=== PATIENT | female | born 1965 | race Caucasian/White ===

== ENCOUNTER 2017-01-30 13:15 | Outpatient (RCR) ==
[2015-07-28 07:37] VITALS: BMI 31.9
--- NOTE | 2017-02-01 13:12 | RS.OPPTEV2 ---
Date of Note: 01/30/17 Visit #: 1 Date of Evaluation: 01/30/17 Payer Source: Insurance Date of Onset/Injury/Change in Status: 11/04/16 Surgery Performed?: No Treatment Diagnosis: Right foot/ankle pain History of Condition/Mechanism of Injury:: Patient reports a knot on the side of her heel for a good while, but she did not start having pain until this past November. Prior Level of Function.....Patient was independent with: ADL's, Self Care, Work /Vocation, Caregiving, Ambulation/Mobility, Community Integration/Access Functional Limitations: Sleep, Self Care, ADL's, Reaching, Pushing, Pulling, Lifting, Carrying, Community Access/Integration Current Subjective/complaints:: Patient reports she has been in a CAM boot for a month. States she only wears it at work because she is on her feet constantly. Reports having pain on the right foot only. States prior to the boot she was having more pain. Now she only has pain when she is on her feet. She reports most of her pain is on the lateral side of the calcaneus. Reports no pain on the bottom of the heel. States pain begins in the morning after walking around. She has inserts in her shoes and has tried a frozen water bottle on the bottom of the foot. Treatment Side (optional): Right Medical History Medical History: Unremarkable Surgical History Comments:: Left knee surgery, bilateral foot surgery Smoking Status: Never smoker Hx Home Medications: protonix, has pain medication Patient's Goals: Her goal is to get relief of foot pain and avoid surgery. Pain Assessment - Pain Description Pain Location: right heel (lateral side) Current Pain Intensity: 5/10 Worst Pain Intensity: 8/10 Functional Outcome Measure LE Functional Scale: 45 (45/80=43.75% impairment) - G Codes & Severity Modifier G Codes & Modifier: NA Source of G Code score: NA Observation - Observation Inspection: Right heel exhibits an observable knot/protuberance on the calcaneus , just medial to the insertion of the achilles tendon. Girth Measurement Lower: Right foot: Malleoli 29 cm. Metheads 24.5 cm Gait - Gait Pattern Gait Comments: Patient ambulates without an assistive device with the CAM boot on the right LE. Without the boot, she demonstrates decreased heel strike or toe off and presents decreased stance on the right LE. Ankle ROM: Bilaterally WFL's Ankle Muscle Strength: Left WFL's - Right Ankle ROM Comments: Right DF 5 degrees, PF 60 degrees, Inversion and Eversion WFL's. - Left Ankle Strength Left Dorsiflexion: 5 Normal Left Plantar flexion: 5 Normal Left Eversion: 5 Normal Left Inversion: 5 Normal - Right Ankle Strength Right Dorsiflexion: 5 Normal Right Plantarflexion: 5 Normal Right Eversion: 4 Good Right Inversion: 4 Good Palpation Comments:: Patient reports slight tenderness on medial and lateral side of achilles tendon. No pain with direct palpation to throughout the achilles tendon. Sensation - Sensation Comments: Patient reports numbness at the medial side of the calcaneus. - Treatment Modality: Ultrasound Parameters/Method Applied: 1.5 w/cm2 continous over the medial and lateral aspect of the achilles tendon X 10 mins total. Patient Position: Prone Interventions - Exercise/Activities/Manual Therapy Exercises/Activities: Patient instructed in gastroc, soleus, and plantar fascia stretch for home. Advised to continue to wear the CAM boot at work, at least 1/ 2 of the day. Manual Therapy: Na HOME EXERCISE PROGRAM: Gastroc, soleus, plantar fascia stretching - Charges Total Direct Minutes: 45 mins Total Treatment Time: 45 mins Procedures billed for this date of service:: ELVIN Dixon, Assessment Assessment: Patient presents to therapy with a diagnosis of Retrocalcaneal bursitis and achilles tendinitis of the right LE. She reports pain with weightbearing. Demonstrates limited heelcord flexibility and weakness in inversion and eversion. She will benefit from modalities to reduce soft tissue inflammation, exercises to improve heelcord tissue length and progressed ankle stability exercises. Patient Education: Education of diagnosis, Body/Joint mechanics, Home Exercise Program, Home Safety, Activity Modification, Education of Plan of Care Rehab Potential: Good Short Term Goals Goal #1: Right ankle DF to 10 degrees actively. Goal to be met by: 02/14/17 Goal #2: Right ankle inversion and eversion 4+/5. Goal to be met by: 02/14/17 Goal #3: Patient independent and compliant with basic HEP. Goal to be met by: 02/14/17 Goal #4: Patient to ambulate short distances w/o CAM boot, w/ minimal R foot pain. Goal to be met by: 02/14/17 [facility] Goals Goal #1: Pt knows HEP and understands the need to cont. exercises after D/C from PT Goal to be met by: 03/22/17 Goal #2: Pt to tolerate standing/walking as needed @ work and home w/o R foot pain. Goal to be met by: 03/22/17 Goal #3: Score on LE functional scale improved to 70/80. Goal to be met by: 03/22/17 Goal #4: Pt to amb. without CAM boot functional distances without gait deviation. Goal to be met by: 03/22/17 Plan - Treatment to be Provided Procedures: Therapeutic Exercises, Therapeutic Activity, Neuromuscular Rehab, Manual Therapy, Patient Education Modalities: Electrical Stimulation, Ultrasound/Phonophoresis, Class IV Laser, Cryotherapy, Hot Packs - Treatment Plan Frequency: 2-3 X week Duration: 6 weeks ORDER # VISITS AND/OR THROUGH DATE: 03/22/17 - Treatment Code (1) Foot pain Qualifiers: Laterality: right Qualified Description: Right foot pain Qualifier Code(s): (M79.671) Pain in right foot (2) Ankle stiff Qualifiers: Laterality: right Qualified Description: Stiffness of ankle joint, right Qualifier Code(s): (M25.671) Stiffness of right ankle, not elsewhere classified (3) Calcaneal bursitis, right Comments: 77.51 (4) Achilles tendinitis of right lower extremity Comments: M76.61
== END 2017-02-01 ==
PROVIDERS: ATTEND Podiatrist
DX: M75.22 Bicipital tendinitis, left shoulder (principal)

== ENCOUNTER 2017-02-22 08:15 | Outpatient (RCR) ==
[2015-07-28 07:37] VITALS: BMI 31.9
--- NOTE | 2017-02-04 10:01 | RS.OPPTDN ---
Subjective Date of Note: 02/04/17 Visit #: 2 Date of Evaluation: 01/30/17 Payer Source: Insurance Treatment Diagnosis: Right foot/ankle pain Current Subjective/complaints:: Patient reports moderate pain,walked alot over the weekend. Pain Assessment - Pain Description Pain Location: right heel (lateral side) Current Pain Intensity: 5/10 - Treatment Modality: Ultrasound Parameters/Method Applied: 10 mins. @ 1.5 w/cm2 ,continuous mode to R ankle, lateral aspect of heel. Interventions - Exercise/Activities/Manual Therapy Exercises/Activities: R ankle isometrics all directions,gentle stretches for DF/ PF.HEP review. Total minutes of Exercise: 15 Manual Therapy: Na Total minutes of Manual Therapy: 0 HOME EXERCISE PROGRAM: Gastroc, soleus, plantar fascia stretching - Charges Total Direct Minutes: 25 Total Treatment Time: 25 Procedures billed for this date of service:: US,ex 1 Assessment: Patient tolerates isometrics with out increased pain.She reports most of her pain today is with stretching the Achilles tendon.We discussed her wearing the CAM boot as recommended by the supervising PT,and to exercises in PAIN FREE ROM. Patient Education: Education of diagnosis, Body/Joint mechanics, Home Exercise Program, Home Safety, Activity Modification, Education of Plan of Care Patient demonstrates compliance with HEP?: Yes Short Term Goals Goal #1: Right ankle DF to 10 degrees actively. Goal to be met by: 02/14/17 Progress towards Goal:: Progressing Goal #2: Right ankle inversion and eversion 4+/5. Goal to be met by: 02/14/17 Goal #3: Patient independent and compliant with basic HEP. Goal to be met by: 02/14/17 Goal #4: Patient to ambulate short distances w/o CAM boot, w/ minimal R foot pain. Goal to be met by: 02/14/17 Custodial Goals Goal #1: Pt knows HEP and understands the need to cont. exercises after D/C from PT Goal to be met by: 03/22/17 Goal #2: Pt to tolerate standing/walking as needed @ work and home w/o R foot pain. Goal to be met by: 03/22/17 Goal #3: Score on LE functional scale improved to 70/80. Goal to be met by: 03/22/17 Goal #4: Pt to amb. without CAM boot functional distances without gait deviation. Goal to be met by: 03/22/17 Plan PLAN OF CARE EXPIRES ON:: 03/22/17 ORDER # VISITS AND/OR THROUGH DATE: 03/22/17 PLAN: Continue Plan of Care
--- NOTE | 2017-02-06 11:31 | RS.OPPTDN ---
Subjective Date of Note: 02/06/17 Visit #: 3 Date of Evaluation: 01/30/17 Payer Source: Insurance Treatment Diagnosis: Right foot/ankle pain Current Subjective/complaints:: Patient reports treatment is helping to reduce pain in the right heel. States she is consisitently wearing her boot. Pain Assessment - Pain Description Pain Location: right heel (lateral side) Current Pain Intensity: 5/10 - Treatment Modality: Ultrasound Parameters/Method Applied: [id number] at 1.5w/cm2 to the right heel and distal achilles tendon prior to EX. Patient Position: Prone Interventions - Exercise/Activities/Manual Therapy Exercises/Activities: Manual stretching to the R heel cords and plantar fascia. Isometric ankle df. Total minutes of Exercise: 12mins Manual Therapy: Na HOME EXERCISE PROGRAM: Gastroc, soleus, plantar fascia stretching - Charges Total Direct Minutes: 24mins Total Treatment Time: 25mins Procedures billed for this date of service:: US, EX Assessment: Patient responding well to treatment. Patient Education: Home Exercise Program Patient demonstrates compliance with HEP?: Yes Short Term Goals Goal #1: Right ankle DF to 10 degrees actively. Goal to be met by: 02/14/17 Progress towards Goal:: Progressing Goal #2: Right ankle inversion and eversion 4+/5. Goal to be met by: 02/14/17 Goal #3: Patient independent and compliant with basic HEP. Goal to be met by: 02/14/17 Goal #4: Patient to ambulate short distances w/o CAM boot, w/ minimal R foot pain. Goal to be met by: 02/14/17 [facility] Goals Goal #1: Pt knows HEP and understands the need to cont. exercises after D/C from PT Goal to be met by: 03/22/17 Goal #2: Pt to tolerate standing/walking as needed @ work and home w/o R foot pain. Goal to be met by: 03/22/17 Goal #3: Score on LE functional scale improved to 70/80. Goal to be met by: 03/22/17 Goal #4: Pt to amb. without CAM boot functional distances without gait deviation. Goal to be met by: 03/22/17 Plan PLAN OF CARE EXPIRES ON:: 03/22/17 ORDER # VISITS AND/OR THROUGH DATE: 03/22/17 PLAN: Continue Plan of Care
--- NOTE | 2017-02-08 11:24 | RS.OPPTDN ---
Subjective Date of Note: 02/08/17 Visit #: 4 Date of Evaluation: 01/30/17 Payer Source: Insurance Treatment Diagnosis: Right foot/ankle pain Current Subjective/complaints:: Patient reports treatment is helping reduce pain. States she went without boot more last evening and pain has slightly increased. States she is working on stretching and icing. Pain Assessment - Pain Description Pain Location: right heel (lateral side) Current Pain Intensity: 5/10 - Treatment Modality: Ultrasound Parameters/Method Applied: [id number] at 1.5w/cm2 to the right heel and along the distal heel cord. Patient Position: Prone Interventions - Exercise/Activities/Manual Therapy Exercises/Activities: Manual stretching to the R heel cords and plantar fascia, in prone, supine, and standing position. Isometric ankle df. All multiple reps. Total minutes of Exercise: 15mins Manual Therapy: Na HOME EXERCISE PROGRAM: Gastroc, soleus, plantar fascia stretching. Isometric ankle df. - Charges Total Direct Minutes: 27mins Total Treatment Time: 30mins Procedures billed for this date of service:: US, EX Assessment: Patient continues to see progress with treatment and stretching exercise. Patient Education: Home Exercise Program, Home Safety Patient demonstrates compliance with HEP?: Yes Short Term Goals Goal #1: Right ankle DF to 10 degrees actively. Goal to be met by: 02/14/17 Progress towards Goal:: Progressing Goal #2: Right ankle inversion and eversion 4+/5. Goal to be met by: 02/14/17 Goal #3: Patient independent and compliant with basic HEP. Goal to be met by: 02/14/17 Progress towards Goal:: Progressing Goal #4: Patient to ambulate short distances w/o CAM boot, w/ minimal R foot pain. 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 exercises after D/C from PT Goal to be met by: 03/22/17 Goal #2: Pt to tolerate standing/walking as needed @ work and home w/o R foot pain. Goal to be met by: 03/22/17 Goal #3: Score on LE functional scale improved to 70/80. Goal to be met by: 03/22/17 Goal #4: Pt to amb. without CAM boot functional distances without gait deviation. Goal to be met by: 03/22/17 Plan PLAN OF CARE EXPIRES ON:: 03/22/17 ORDER # VISITS AND/OR THROUGH DATE: 03/22/17 PLAN: Continue Plan of Care
--- NOTE | 2017-02-11 09:19 | RS.OPPTDN ---
Subjective Date of Note: 02/11/17 Visit #: 15 Date of Evaluation: 01/30/17 Payer Source: Insurance Treatment Diagnosis: Right foot/ankle pain Current Subjective/complaints:: Patient reports right heel pain is better. She is trying to decrease use of boot during the day at home. Pain Assessment - Pain Description Pain Location: right heel (lateral side) Current Pain Intensity: Low as she is wearing boot this morning. Worst Pain Intensity: 4/10 after walking without boot. - Treatment Modality: Ultrasound Parameters/Method Applied: [id number] at 1.5w/cm2 to the right posterior heel and distal achilles tendon. Patient Position: Prone Interventions - Exercise/Activities/Manual Therapy Exercises/Activities: Manual stretching to the R heel cords and plantar fascia, in prone, supine, and standing position. Isometric ankle df. All multiple reps. Total minutes of Exercise: 12mins Manual Therapy: Na HOME EXERCISE PROGRAM: Gastroc, soleus, plantar fascia stretching. Isometric ankle df. - Charges Total Direct Minutes: 26mins Total Treatment Time: 26mins Procedures billed for this date of service:: US, EX Assessment: Patient progressing well. She reports reduction in pain level and is reducing time she wears boot. Patient Education: Home Exercise Program Comments: Discussed wearing boot half days at work in attempt to wean but avoid increase pain. Patient demonstrates compliance with HEP?: Yes Short Term Goals Goal #1: Right ankle DF to 10 degrees actively. Goal to be met by: 02/14/17 Progress towards Goal:: Progressing Goal #2: Right ankle inversion and eversion 4+/5. Goal to be met by: 02/14/17 Progress towards Goal:: Progressing Goal #3: Patient independent and compliant with basic HEP. Goal to be met by: 02/14/17 Progress towards Goal:: Met Goal #4: Patient to ambulate short distances w/o CAM boot, w/ minimal R foot pain. Goal to be met by: 02/14/17 Progress towards Goal:: Progressing Long-Term Goals Goal #1: Pt knows HEP and understands the need to cont. exercises after D/C from PT Goal to be met by: 03/22/17 Progress towards goal: Progressing Goal #2: Pt to tolerate standing/walking as needed @ work and home w/o R foot pain. Goal to be met by: 03/22/17 Goal #3: Score on LE functional scale improved to 70/80. Goal to be met by: 03/22/17 Goal #4: Pt to amb. without CAM boot functional distances without gait deviation. Goal to be met by: 03/22/17 Plan PLAN OF CARE EXPIRES ON:: 03/22/17 ORDER # VISITS AND/OR THROUGH DATE: 03/22/17 PLAN: Continue Plan of Care
--- NOTE | 2017-02-13 09:20 | RS.OPPTDN ---
Subjective Date of Note: 02/13/17 Visit #: 6 Date of Evaluation: 01/30/17 Payer Source: Insurance Treatment Diagnosis: Right foot/ankle pain Current Subjective/complaints:: Patient states she was able to go without brace all day yesterday at work. States she will try to go all day today, but has boot in case she has increased pain. Pain Assessment - Pain Description Pain Location: right heel (lateral side) Current Pain Intensity: Low as she is wearing boot this morning. - Treatment Modality: Ultrasound Parameters/Method Applied: [id number] at 1.5w/cm2 to the right posterior heel and along the heel cords. Patient Position: Prone Interventions - Exercise/Activities/Manual Therapy Exercises/Activities: Manual stretching to the R heel cords and plantar fascia, in prone, supine, and standing position. Isometric ankle df, inversion, and eversion, all multiple reps. Total minutes of Exercise: 15mins Manual Therapy: Na HOME EXERCISE PROGRAM: Gastroc, soleus, plantar fascia stretching. Isometric ankle df. - Charges Total Direct Minutes: 29mins Total Treatment Time: 29mins Procedures billed for this date of service:: US, EX Assessment: Patient going with brace and responding well. Patient Education: Home Exercise Program Patient demonstrates compliance with HEP?: Yes Short Term Goals Goal #1: Right ankle DF to 10 degrees actively. Goal to be met by: 02/14/17 Progress towards Goal:: Progressing Goal #2: Right ankle inversion and eversion 4+/5. Goal to be met by: 02/14/17 Progress towards Goal:: Met Goal #3: Patient independent and compliant with basic HEP. Goal to be met by: 02/14/17 Progress towards Goal:: Met Goal #4: Patient to ambulate short distances w/o CAM boot, w/ minimal R foot pain. Goal to be met by: 02/14/17 Progress towards Goal:: Met Tearer Goals Goal #1: Pt knows HEP and understands the need to cont. exercises after D/C from PT Goal to be met by: 03/22/17 Progress towards goal: Progressing Goal #2: Pt to tolerate standing/walking as needed @ work and home w/o R foot pain. Goal to be met by: 03/22/17 Progress towards goal: Progressing Goal #3: Score on LE functional scale improved to 70/80. Goal to be met by: 03/22/17 Goal #4: Pt to amb. without CAM boot functional distances without gait deviation. Goal to be met by: 03/22/17 Progress towards goal: Progressing Plan PLAN OF CARE EXPIRES ON:: 03/22/17 ORDER # VISITS AND/OR THROUGH DATE: 03/22/17 PLAN: Continue Plan of Care
--- NOTE | 2017-02-18 09:26 | RS.OPPTDN ---
Subjective Date of Note: 02/18/17 Visit #: 7 Date of Evaluation: 01/30/17 Payer Source: Insurance Treatment Diagnosis: Right foot/ankle pain Current Subjective/complaints:: Patient reports increased right heel pain today. States she was on her feet a lot over the weekend. She is wearing the boot again today at work. Reports lateral heel (calcaneus) is more painful than medial today. Pain Assessment - Pain Description Pain Location: right heel (lateral side) Current Pain Intensity: moderate+ - Treatment Modality: Ultrasound Parameters/Method Applied: [id number] at 1.5w/cm2 to the medial and lateral calcaneus and along the achilles tendon prior to EX and ice massage. Patient Position: Prone - Heat/Cryotherapy Treatment: Cryotherapy (x5mins ice massage to the right heel and achilles tendon. Patient in prone. ) Interventions - Exercise/Activities/Manual Therapy Exercises/Activities: x5mins. Manual stretching to the R heel cords and plantar fascia, in prone. Total minutes of Exercise: 5mins Manual Therapy: Na HOME EXERCISE PROGRAM: Gastroc, soleus, plantar fascia stretching. Isometric ankle df. - Charges Total Direct Minutes: 24mins Total Treatment Time: 28mins Procedures billed for this date of service:: US, EX Assessment: Patient with flair-up today. She did a lot of standing over weekend and did not wear boot which may have aggravated pain. Patient Education: Home Exercise Program, Activity Modification Comments: Reviewed mechancis, HEP, and advised patient to change to a better supportive shoe when walking at home. Instructed patient in ice massage for home care. Patient demonstrates compliance with HEP?: Yes Short Term Goals Goal #1: Right ankle DF to 10 degrees actively. Goal to be met by: 02/14/17 Progress towards Goal:: Progressing Goal #2: Right ankle inversion and eversion 4+/5. Goal to be met by: 02/14/17 Progress towards Goal:: Met Goal #3: Patient independent and compliant with basic HEP. Goal to be met by: 02/14/17 Progress towards Goal:: Met Goal #4: Patient to ambulate short distances w/o CAM boot, w/ minimal R foot pain. Goal to be met by: 02/14/17 Progress towards Goal:: Met Snf Goals Goal #1: Pt knows HEP and understands the need to cont. exercises after D/C from PT Goal to be met by: 03/22/17 Progress towards goal: Progressing Goal #2: Pt to tolerate standing/walking as needed @ work and home w/o R foot pain. Goal to be met by: 03/22/17 Progress towards goal: Regressing Comments: flair-up with pain today Goal #3: Score on LE functional scale improved to 70/80. Goal to be met by: 03/22/17 Goal #4: Pt to amb. without CAM boot functional distances without gait deviation. Goal to be met by: 03/22/17 Progress towards goal: Regressing Comments: wearing boot at work again today Plan PLAN OF CARE EXPIRES ON:: 03/22/17 ORDER # VISITS AND/OR THROUGH DATE: 03/22/17 PLAN: Continue Plan of Care (Continue mdoalites and patient will try ice massage at home to reduce pain and swelling.)
--- NOTE | 2017-02-20 10:00 | RS.OPPTDN ---
Subjective Date of Note: 02/20/17 Visit #: 8 Date of Evaluation: 01/30/17 Payer Source: Insurance Treatment Diagnosis: Right foot/ankle pain Current Subjective/complaints:: Patient reports she has worn boot at work the last 3 days and pain and tenderness has decreased. Pain Assessment - Pain Description Pain Location: right heel (lateral side) Current Pain Intensity: mild to mod Other Comments regarding Pain:: Continues to have pain at the medial and lateral calcaneus at point of achilles insertion. - Treatment Modality: Ultrasound Parameters/Method Applied: [id number] at 1.5w/cm2 to the right heel at tendon insertion and along the achilles tendon and mid gastroc. Patient Position: Prone - Heat/Cryotherapy Treatment: Cryotherapy (x5mins ice massage to right heel and achilles tendon following EX. Patient in prone. ) Interventions - Exercise/Activities/Manual Therapy Exercises/Activities: [id number]. Manual stretching to the R heel cords and plantar fascia, in prone and supine. Isometrics for right ankle df, inversion, and eversion, multiple reps. Total minutes of Exercise: 10mins Manual Therapy: Na HOME EXERCISE PROGRAM: Gastroc, soleus, plantar fascia stretching. Isometric ankle df. Red ther green theraband for ankle df. - Charges Total Direct Minutes: 29mins Total Treatment Time: 30mins Procedures billed for this date of service:: US, EX Assessment: Patient responds better to treatment since returning to wearing boot at work. Patient Education: Home Exercise Program Patient demonstrates compliance with HEP?: Yes Short Term Goals Goal #1: Right ankle DF to 10 degrees actively. Goal to be met by: 02/14/17 Progress towards Goal:: Progressing Goal #2: Right ankle inversion and eversion 4+/5. Goal to be met by: 02/14/17 Progress towards Goal:: Met Goal #3: Patient independent and compliant with basic HEP. Goal to be met by: 02/14/17 Progress towards Goal:: Met Goal #4: Patient to ambulate short distances w/o CAM boot, w/ minimal R foot pain. 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 exercises after D/C from PT Goal to be met by: 03/22/17 Progress towards goal: Progressing Goal #2: Pt to tolerate standing/walking as needed @ work and home w/o R foot pain. Goal to be met by: 03/22/17 Progress towards goal: Regressing Goal #3: Score on LE functional scale improved to 70/80. Goal to be met by: 03/22/17 Goal #4: Pt to amb. without CAM boot functional distances without gait deviation. Goal to be met by: 03/22/17 Progress towards goal: Regressing Plan PLAN OF CARE EXPIRES ON:: 03/22/17 ORDER # VISITS AND/OR THROUGH DATE: 03/22/17 PLAN: Continue Plan of Care
--- NOTE | 2017-02-22 10:25 | RS.OPPTDN ---
Subjective Date of Note: 02/22/17 Visit #: 9 Date of Evaluation: 01/30/17 Payer Source: Insurance Treatment Diagnosis: Right foot/ankle pain Current Subjective/complaints:: Patient reports continued pain in the right heel and along distal achilles tendon. States she has been consistently wearing the walking boot this week. Following discussion, patient decides to hold treatment pending follow-up with physician. If surgery is recommended, she will save additonal therapy visit for post-op care. Pain Assessment - Pain Description Pain Location: right heel (lateral side) Current Pain Intensity: mild to mod - Treatment Modality: Ultrasound Parameters/Method Applied: [id number] at 1.5w/cm2 to the posterior heel and along the distal achilles tendon and mid gastroc. Patient Position: Prone - Heat/Cryotherapy Treatment: Cryotherapy (CP to right heel and distal achilles tendon following stretching. ) Interventions - Exercise/Activities/Manual Therapy Exercises/Activities: x8mins. Manual stretching to the R heel cords and plantar fascia, in prone and supine. Isometrics for right ankle df, multiple reps. Total minutes of Exercise: 8mins Manual Therapy: Na HOME EXERCISE PROGRAM: Gastroc, soleus, plantar fascia stretching. Isometric ankle df. Red ther green theraband for ankle df. - Charges Total Direct Minutes: 22mins Total Treatment Time: 37mins Procedures billed for this date of service:: US, EX Assessment: Patient with recurring exacerbation of right heel pain. She will hold therapy and see physician for follw-up. She will need to continue basic HEP and use ice to reduce swelling and inflammation. Patient Education: Home Exercise Program, Home Safety, Activity Modification Patient demonstrates compliance with HEP?: Yes Short Term Goals Goal #1: Right ankle DF to 10 degrees actively. Goal to be met by: 02/14/17 Progress towards Goal:: Progressing Goal #2: Right ankle inversion and eversion 4+/5. Goal to be met by: 02/14/17 Progress towards Goal:: Met Goal #3: Patient independent and compliant with basic HEP. Goal to be met by: 02/14/17 Progress towards Goal:: Met Goal #4: Patient to ambulate short distances w/o CAM boot, w/ minimal R foot pain. Goal to be met by: 02/14/17 Progress towards Goal:: Met [facility] Goals Goal #1: Pt knows HEP and understands the need to cont. exercises after D/C from PT Goal to be met by: 03/22/17 Progress towards goal: Progressing Goal #2: Pt to tolerate standing/walking as needed @ work and home w/o R foot pain. Goal to be met by: 03/22/17 Progress towards goal: Progressing Goal #3: Score on LE functional scale improved to 70/80. Goal to be met by: 03/22/17 Goal #4: Pt to amb. without CAM boot functional distances without gait deviation. Goal to be met by: 03/22/17 Progress towards goal: No Change Plan PLAN OF CARE EXPIRES ON:: 03/22/17 ORDER # VISITS AND/OR THROUGH DATE: 03/22/17 PLAN: Hold (Hold treatment at this time and patient to follow-up with physician.)
--- NOTE | 2017-04-18 15:10 | RS.QUICKDC ---
Discharge from PT Date of Discharge: 04/18/17 Number of Visits: 9 Reason for Discharge: Patient made some progress and was able to met 3 goals. She did report continued heel pain and was scheduled for a follow-up with her phsyician. No further treatment ordered or appointments were scheduled. She will be schedule for surgery. Please refer to last daily note for specifics of treatment. Discharge at this time.
== END 2017-03-03 ==
PROVIDERS: ATTEND Podiatrist
DX: M75.22 Bicipital tendinitis, left shoulder (principal)

== ENCOUNTER 2017-03-15 07:37 | Emergency (ER) | payer OTHER ==
[2017-03-15 07:46] VITALS: BP 126/83; TEMP 97.7; BMI 33.9
--- NOTE | 2017-03-15 08:02 | ED.PDOC ---
General ED Provider: Dr. VIC SMALL Chief Complaint: Foot Pain/Injury Stated Complaint: right foot pain Time Seen by Physician: 07:40 Mode of Arrival: Walk-In Information Source: Patient Exam Limitations: No limitations Primary Care Provider: ERNESTO SERVIN Nursing and Triage Documentation Reviewed and Agree: Yes Musculoskeletal Complaint Exam - Ankle/Foot Complaint/Exam Location of Injury: Reports: Right, Foot Onset/Duration: weeks Symptoms Are: Reports: Still present Onset of Pain: Reports: Weeks Initial Severity: Moderate Current Severity: Moderate Character: Reports: Aching, Throbbing, Spasmodic, Stiffness Alleviating: Reports: Rest, Position Aggravating: Reports: Movement, Weight bearing, Prolonged standing Able to Bear Weight: Yes Associated Signs and Symptoms: Denies: Swelling, Redness, Bruising, Fever, Weakness, Numbness, Tingling Gout Risk Factors: Reports: >40 years old Review of Systems - Review Of Systems Constitutional: Reports: No symptoms Eyes: Reports: No symptoms Ears, Nose, Mouth, Throat: Reports: No symptoms Respiratory: Reports: No symptoms Cardiac: Reports: No symptoms GI: Reports: No symptoms : Reports: No symptoms Musculoskeletal: Reports: Joint pain (fppt ) Skin: Reports: No symptoms Neurological: Reports: No symptoms Endocrine: Reports: No symptoms Hematologic/Lymphatic: Reports: No symptoms All Other Systems: Reviewed and Negative Past Medical History - Past Medical History Previously Healthy: Yes Endocrine: Reports: None Cardiovascular: Reports: None Respiratory: Reports: None Hematological: Reports: None Gastrointestinal: Reports: None Genitourinary: Reports: None Neuro/Psych: Reports: None Musculoskeletal: Reports: None Cancer: Reports: None Last Menstrual Period: 09/19 - Surgical History General Surgical History: Reports: Cholecystectomy, Orthopedic - Family History Family History: Reports: Unknown - Social History Smoking Status: Never smoker Hx Substance Use: No Alcohol Screening: Occasionally Physical Exam - Physical Exam Appearance: Well-appearing, No pain distress, Well-nourished Eyes: GABRIELA, EOMI, Conjunctiva clear ENT: Ears normal, Nose normal, Oropharynx normal Respiratory: Airway patent, Breath sounds clear, Breath sounds equal, Respirations nonlabored Cardiovascular: RRR, Pulses normal, No rub, No murmur GI/: Soft, Nontender, No masses, Bowel sounds normal, No Organomegaly Musculoskeletal: Limited ROM (right foot consistent with heel spur) Skin: Warm, Dry, Normal color Neurological: Sensation intact, Motor intact, Reflexes intact, Cranial nerves intact, Alert, Oriented Psychiatric: Affect appropriate, Mood appropriate Critical Care Note - Critical Care Note Total Time (mins): 0 Course - Course Vital Signs: Temp Pulse Resp BP Pulse Ox 03/15/17 07:39 97.7 F 87 20 126/83 94 L Departure - Departure Time of Disposition: 08:01 Disposition: HOME SELF-CARE Discharge Problem: Foot pain, right Instructions: Arthralgia (ED) Condition: Good Pt referred to PMD for follow-up: Yes Allergies/Adverse Reactions: Allergies meperidine HCl [From Demerol] Allergy (Severe, Unverified 01/27/16 13:34) N/V Home Medications: Ambulatory Orders Pantoprazole Sodium [Protonix] 40 mg PO DAILY 07/28/15
== END 2017-03-15 08:11 | disposition home or self-care (01) ==
LOC: ED 07:37
DX: M79.671 Pain in right foot (principal)
CPT/HCPCS: 99282

== ENCOUNTER 2017-06-17 14:39 | Outpatient (CLI) ==
[2017-06-17 14:52] LABS: BASOPHILS # (AUTO) 0.1 K/uL (0-0.2); BASOPHILS % (AUTO) 1.1 % (0.0-3.0); EOSINOPHILS # (AUTO) 0.3 K/ul (0.0-0.7); HEMATOCRIT 40.9 % (37.0-47.0); HEMOGLOBIN 14.3 g/dl (12.0-16.0); IMMATURE GRANULOCYTE % (AUTO) 0.3 % (0.0-5.0); LYMPHOCYTES # (AUTO) 2.1 K/uL (0.60-3.4); MEAN CORPUSCULAR HEMOGLOBIN 31.6 pg (27.0-31.0); MEAN CORPUSCULAR VOLUME 90.5 fl (81.0-99.0); MONOCYTES # (AUTO) 0.4 K/uL (0.4-2.0); MONOCYTES % (AUTO) 6.5 (0-10); NEUTROPHILS # (AUTO) 3.3 K/ul (2.0-6.9); NEUTROPHILS % (AUTO) 54.1; PLATELET COUNT 209 10^3/uL (140-440); RED BLOOD COUNT 4.52 10^6/ul (4.20-5.40); WHITE BLOOD COUNT 6.18 K/ul (4.6-10.2)
[2017-06-17 15:37] LABS: ALBUMIN 3.8 g/dL (3.4-5.0); ALBUMIN/GLOBULIN RATIO 1.12; BILIRUBIN,TOTAL 0.44 mg/dL (0.00-1.20); BUN/CREATININE RATIO 21.51; CALCIUM 9.5 mg/dL (8.2-10.2); CHOL/HDL RATIO 3.7 (4.5-5.5); CREATININE 0.79 mg/dL (0.60-1.30); POTASSIUM 3.6 mmol/L (3.5-5.10); TOTAL PROTEIN 7.2 g/dL (6.4-8.2)
[2017-06-17 16:02] LABS: ANION GAP 13.6
== END 2017-06-17 14:40 | disposition home or self-care (01) ==
LOC: LAB 14:39
PROVIDERS: ATTEND Internal Medicine
DX: E55.9 Vitamin D deficiency, unspecified (principal); K21.9 Gastro-esophageal reflux disease without esophagitis
CPT/HCPCS: 36415; 80053; 80061; 83036; 84443; 85025

== ENCOUNTER 2017-10-02 08:15 | Outpatient (RCR) ==
--- NOTE | 2017-09-10 16:39 | RS.OPPTEV2 ---
Date of Note: 09/10/17 Visit #: 1 Date of Evaluation: 09/10/17 Payer Source: Insurance Date of Onset/Injury/Change in Status: 07/05/17 Surgery Performed?: Yes Procedure Performed: surgery to remove bone spur from achilles tendon area of R foot Treatment Diagnosis: Right foot/ankle pain History of Condition/Mechanism of Injury:: Patient reports a knot on the side of her heel for a good while, but she did not start having pain until this past November. Prior Level of Function.....Patient was independent with: ADL's, Self Care, Work /Vocation, Caregiving, Ambulation/Mobility, Community Integration/Access Functional Limitations: Sleep, Self Care, ADL's, Reaching, Pushing, Pulling, Lifting, Carrying, Community Access/Integration Current Subjective/complaints:: pt states she had surgery on 07/05/17 and MD told her she could gradually stop wearing boot. pt states last week she thinks she overdid it and worked on her feet all day without boot and R foot swelled. Treatment Side (optional): Right *Precautions: n/a Medical History Medical History: Unremarkable Medical History Comments:: GERD Surgical History: Cholecystectomy Surgical History Comments:: Left knee surgery, bilateral foot surgery, L shld rotator cuff repair, Smoking Status: Never smoker Hx Home Medications: protonix, has pain medication Patient's Goals: be able to return to activities with no restriction Pain Assessment - Pain Description Pain Location: right heel (lateral side) Current Pain Intensity: no pain at rest Functional Outcome Measure UE Functional Index: 45 - G Codes & Severity Modifier G Codes & Modifier: n/a Source of G Code score: n/a Observation - Observation Posture: Forward Head, Rounded Shoulders Handedness: Right Gait - Gait Pattern General Gait Pattern Observation: Crouched Gait, Short Stance Time (R), Decrease Stride Lngth (R) Gait Comments: pt amb with decreased heel strike, toe off gait, pt also amb with RLE ext rotated General Range of Motion: BUE WFL's, LLE WFL's. R LE WFL's except R ankle Muscle Strength: BUE 5/5, LLE 5/5,. RLE hip flex, knee flex/ext 5/5, except ankle DF/PF Ankle ROM: Left WFL's Ankle Muscle Strength: Left WFL's - Right Ankle ROM Right DF with Knee extension: 90 Right Plantarflexion: 40 Right Ankle/Foot ROM Limitations: Soft Tissue Tightness, Pain - Right Ankle Strength Right Dorsiflexion: 3 Fair Right Plantarflexion: 3 Fair Right Eversion: 3+ Fair+ Right Inversion: 3+ Fair+ Palpation Palpation Findings: Tenderness Comments:: R lat ankle Sensation - Sensation Right Upper Extremity: Intact/Normal Left Upper Extremity: Intact/Normal Right Lower Extremity: Intact/Normal Left Lower Extremity: Intact/Normal Sensation Description: Within Normal Limits Balance - Sitting Balance Static Sitting Balance: Normal Dynamic Sitting Balance: Normal - Standing Balance Static Standing Balance: Normal Dynamic Standing Balance: Normal - Heat/Cryotherapy Treatment: Cryotherapy Comments:: R ankle/foot Interventions - Exercise/Activities/Manual Therapy Exercises/Activities: pt performed RLE Ankle DF, PF, Inversion with green tband , rolling ball under foot to stretch plantar fascia, ankle alphabet as well as forward lunges x 5 reps, side lunges x 5 reps. Total minutes of Exercise: 15 Manual Therapy: Na HOME EXERCISE PROGRAM: pt given written HEP with ankle alphabet, tband ex: DF/PF , Inversion, rolling object on plantar surface of foot to stretch plantar fascia , as well as AP and instructed pt to do AP while sitting at her desk and to elevate LE. Also gave pt instructions to ice foot after work/exercise and forward and side lunges. - Charges Total Direct Minutes: 40 Total Treatment Time: 40 Procedures billed for this date of service:: shena hernandez Assessment Assessment: pt presents with edema R ankle as well as decreased strength, ROM and decreased gait sequencing Patient Education: Home Exercise Program, Home Safety, Activity Modification, Education of Plan of Care Rehab Potential: Good Short Term Goals Goal #1: R ankle ROM DF to 95, PF to 50 AROM Goal to be met by: 09/24/17 Goal #2: Increase R ankle Strength DF/PF 4-/5, Inversion/eversion 4-/5 Goal to be met by: 09/24/17 Goal #3: pt amb in dept with improved heel strike/toe off gait pattern w/o ER RLE Goal to be met by: 09/24/17 [facility] Goals Goal #1: pt with improved strength R ankle 4to 4+/5 and independent with HEP Goal to be met by: 10/08/17 Goal #2: pt with decreased edema after working in R ankle, with ROM equal to [place] Goal to be met by: 10/08/17 Goal #3: pt improved LE functional scale to 60/80 Goal to be met by: 10/08/17 Goal #4: Pt to amb functional distances without gait deviation. Goal to be met by: 10/08/17 Plan - Treatment to be Provided Procedures: Therapeutic Exercises, Therapeutic Activity, Neuromuscular Rehab, Manual Therapy, Patient Education Modalities: Electrical Stimulation, Ultrasound/Phonophoresis, Class IV Laser, Cryotherapy, Hot Packs - Treatment Plan Frequency: 2 X week Duration: 4 weeks ORDER # VISITS AND/OR THROUGH DATE: 10/08/17 - Treatment Code (1) Ankle pain Code(s): M25.579 - PAIN IN UNSPECIFIED ANKLE AND JOINTS OF UNSPECIFIED FOOT Qualifiers: Chronicity: acute Laterality: right Qualified Code(s): M25.571 - Pain in right ankle and joints of right foot (2) Encounter for other orthopedic aftercare Code(s): Z47.89 - ENCOUNTER FOR OTHER ORTHOPEDIC AFTERCARE
--- NOTE | 2017-09-12 09:44 | RS.OPPTDN ---
Subjective Date of Note: 09/12/17 Visit #: 2 Date of Evaluation: 01/30/17 Payer Source: Insurance Treatment Diagnosis: Right foot/ankle pain Current Subjective/complaints:: Patient reports marked improvement in swelling and tightness at the right foot/ankle following exercise and modalities. States she is working on improving gait pattern and push-off. *Precautions: n/a Pain Assessment - Pain Description Pain Location: right heel (lateral side) Current Pain Intensity: no pain at rest - Treatment Modality: Electrical Stim Unattended Parameters/Method Applied: [id number] HVGC to 105-115p.v. with 4 small pads to right ankle and mid gastroc with CP following EX. - Heat/Cryotherapy Treatment: Cryotherapy ([id number] with Estim ) Interventions - Exercise/Activities/Manual Therapy Exercises/Activities: PROM and AROM of right ankle. Isometrics with focus on df , inversion, and eversion. Green tband for resistive df, pf, inv, and eversion. Ball squeeze between for isometric inversion. Assisted with bilateral hamstring stretching. Passive stretching of right gastroc, soleus, plantar fascia, toe flex and extension. Ankle circles cw and ccw. Standing forward lunges, modified toe-offs, and marching while keeping right foot in neutral. Total minutes of Exercise: 22mins Manual Therapy: Na HOME EXERCISE PROGRAM: pt given written HEP with ankle alphabet, tband ex: DF/PF , Inversion, rolling object on plantar surface of foot to stretch plantar fascia , as well as AP and instructed pt to do AP while sitting at her desk and to elevate LE. Also gave pt instructions to ice foot after work/exercise and forward and side lunges. - Charges Total Direct Minutes: 22mins Total Treatment Time: 42mins Procedures billed for this date of service:: CP, Estim unattended, EX Assessment: Patient responds well to modalities to reduce swelling. She is motivated to progress exercise and gait pattern. Patient Education: Body/Joint mechanics, Home Exercise Program, Activity Modification Patient demonstrates compliance with HEP?: Yes Short Term Goals Goal #1: R ankle ROM DF to 95, PF to 50 AROM Goal to be met by: 09/24/17 Progress towards Goal:: Progressing Goal #2: Increase R ankle Strength DF/PF 4-/5, Inversion/eversion 4-/5 Goal to be met by: 09/24/17 Progress towards Goal:: Progressing Goal #3: pt amb in dept with improved heel strike/toe off gait pattern w/o ER RLE Goal to be met by: 09/24/17 Progress towards Goal:: Progressing Goal #4: Patient to ambulate short distances w/o CAM boot, w/ minimal R foot pain. Goal to be met by: 02/14/17 Progress towards Goal:: Met [employer] Goals Goal #1: pt with improved strength R ankle 4to 4+/5 and independent with HEP Goal to be met by: 10/08/17 Goal #2: pt with decreased edema after working in R ankle, with ROM equal to L ankle Goal to be met by: 10/08/17 Goal #3: pt improved LE functional scale to 60/80 Goal to be met by: 10/08/17 Goal #4: Pt to amb functional distances without gait deviation. Goal to be met by: 10/08/17 Plan PLAN OF CARE EXPIRES ON:: 10/08/17 ORDER # VISITS AND/OR THROUGH DATE: 10/08/17 PLAN: Progress ROM and strengthening exercise.
--- NOTE | 2017-09-17 09:34 | RS.OPPTDN ---
Subjective Date of Note: 09/17/17 Visit #: 3 Date of Evaluation: 09/10/17 Payer Source: Insurance Treatment Diagnosis: Right foot/ankle pain Current Subjective/complaints:: pt states her R ankle has less swelling. *Precautions: n/a Pain Assessment - Pain Description Pain Location: right heel (lateral side) Pain Description: Aching Current Pain Intensity: no pain at rest - Treatment Modality: Electrical Stim Unattended Parameters/Method Applied: E stim 20 mins HVGC 130p.v. Treatment Area: R ankle Patient Position: Supine - Heat/Cryotherapy Treatment: Cryotherapy Comments:: R ankle with estim Interventions - Exercise/Activities/Manual Therapy Exercises/Activities: pt performed R ankle AROM DF, PF, inversion, eversion, green theraband DF, PF, Inversion, Eversion 2 sets of 10, ball squeezes 2 sets of 10 reps, Forward lunges 2 sets of 10, isometric DF, PF, inversion, eversion, stretching to gastroc, hamstring stretches. Total minutes of Exercise: 32 Manual Therapy: Na HOME EXERCISE PROGRAM: pt given written HEP with ankle alphabet, tband ex: DF/PF , Inversion, rolling object on plantar surface of foot to stretch plantar fascia , as well as AP and instructed pt to do AP while sitting at her desk and to elevate LE. Also gave pt instructions to ice foot after work/exercise and forward and side lunges. - Objective Findings Observations,measurements,etc.: pt amb with improved heel strike, toe off gait pattern as well as with keeping foot in neutral. - Charges Total Direct Minutes: 32 Total Treatment Time: 55 Procedures billed for this date of service:: ex2, estim, cold pack Assessment: pt with improved swelling R ankle as well as decreased pain. Patient Education: Home Exercise Program, Activity Modification, Education of Plan of Care Patient demonstrates compliance with HEP?: Yes Short Term Goals Goal #1: R ankle ROM DF to 95, PF to 50 AROM Goal to be met by: 09/24/17 Progress towards Goal:: Progressing Goal #2: Increase R ankle Strength DF/PF 4-/5, Inversion/eversion 4-/5 Goal to be met by: 09/24/17 Progress towards Goal:: Met Comments:: R ankle strength DF/PF 4+/5, inversion/eversion 4+/5 Goal #3: pt amb in dept with improved heel strike/toe off gait pattern w/o ER RLE Goal to be met by: 09/24/17 Progress towards Goal:: Met [employer] Goals Goal #1: pt with improved strength R ankle 4to 4+/5 and independent with HEP Goal to be met by: 10/08/17 Goal #2: pt with decreased edema after working in R ankle, with ROM equal to [place] Goal to be met by: 10/08/17 Goal #3: pt improved LE functional scale to 60/80 Goal to be met by: 10/08/17 Goal #4: Pt to amb functional distances without gait deviation. Goal to be met by: 10/08/17 Plan PLAN OF CARE EXPIRES ON:: 10/08/17 ORDER # VISITS AND/OR THROUGH DATE: 10/08/17 PLAN: continue to progress with HEP as well as modalities to decrease edema and pain.
--- NOTE | 2017-09-19 10:24 | RS.OPPTDN ---
Subjective Date of Note: 09/19/17 Visit #: 4 Date of Evaluation: 09/10/17 Payer Source: Insurance Treatment Diagnosis: Right foot/ankle pain Current Subjective/complaints:: Patient reports increased swelling in the right foot/ankle today. Patient agrees she may be on her feet longer than she should be at work during the day. *Precautions: n/a Pain Assessment - Pain Description Pain Location: right heel (lateral side) Pain Description: Aching Current Pain Intensity: no pain at rest Other Comments regarding Pain:: Discomfort at the right hip due to gait deviation. - Treatment Modality: Electrical Stim Unattended Parameters/Method Applied: [id number] HVGC to 90 p.v. with 4 large pads, cross current, to the right gastroc and the ankle joint with CP following EX. Patient Position: Supine - Heat/Cryotherapy Treatment: Cryotherapy ([id number] with Estim ) Interventions - Exercise/Activities/Manual Therapy Exercises/Activities: Right ankle AROM of DF, PF, inversion, eversion, and circles cw and ccw. Green theraband DF, PF, Inversion, and Eversion, 3s/10reps. Pillow squeezes 2s/10reps. Increased time with passive stretching of the hamstrings, gastroc, soleus, and plantar fascia. Manually resisted isometric DF , PF, inversion, and eversion. Total minutes of Exercise: 24mins Manual Therapy: Directional massage to the right foot, ankle, and calf. Total minutes of Manual Therapy: 4mins HOME EXERCISE PROGRAM: pt given written HEP with ankle alphabet, tband ex: DF/PF , Inversion, rolling object on plantar surface of foot to stretch plantar fascia , as well as AP and instructed pt to do AP while sitting at her desk and to elevate LE. Also gave pt instructions to ice foot after work/exercise and forward and side lunges. - Objective Findings Observations,measurements,etc.: Patient demos noticable decrease in swelling of the right foot and ankle after EX and modalities. - Charges Total Direct Minutes: 28mins Total Treatment Time: 50mins Procedures billed for this date of service:: EX2, CP, Estim unattended Assessment: Patient appears to be consistent with HEP, but may be aggravating swelling with long hours on her feet. Patient Education: Home Exercise Program, Activity Modification Patient demonstrates compliance with HEP?: Yes Short Term Goals Goal #1: R ankle ROM DF to 95, PF to 50 AROM Goal to be met by: 09/24/17 Progress towards Goal:: Progressing Goal #2: Increase R ankle Strength DF/PF 4-/5, Inversion/eversion 4-/5 Goal to be met by: 09/24/17 Progress towards Goal:: Met Goal #3: pt amb in dept with improved heel strike/toe off gait pattern w/o ER RLE Goal to be met by: 09/24/17 Progress towards Goal:: Met Goal #4: Patient to ambulate short distances w/o CAM boot, w/ minimal R foot pain. Goal to be met by: 02/14/17 Progress towards Goal:: Met [employer] Goals Goal #1: pt with improved strength R ankle 4to 4+/5 and independent with HEP Goal to be met by: 10/08/17 Progress towards goal: Progressing Goal #2: pt with decreased edema after working in R ankle, with ROM equal to [place] Goal to be met by: 10/08/17 Progress towards goal: Regressing Goal #3: pt improved LE functional scale to 60/80 Goal to be met by: 10/08/17 Goal #4: Pt to amb functional distances without gait deviation. Goal to be met by: 10/08/17 Progress towards goal: Not Met Plan PLAN OF CARE EXPIRES ON:: 10/08/17 ORDER # VISITS AND/OR THROUGH DATE: 10/08/17 PLAN: Continue EX to increase strength, ROM, and improve gait pattern.
--- NOTE | 2017-09-24 13:25 | RS.OPPTDN ---
Subjective Date of Note: 09/24/17 Visit #: 5 Date of Evaluation: 09/10/17 Payer Source: Insurance Treatment Diagnosis: Right foot/ankle pain Current Subjective/complaints:: Patient reports swelling continues to be a problem in the right foot and ankle. She reports she will have a 4 day weekend and plans to try to stay off right LE more to reduce swelling. *Precautions: n/a Pain Assessment - Pain Description Pain Location: right foot and ankle Current Pain Intensity: no pain at rest - Treatment Modality: Electrical Stim Unattended Parameters/Method Applied: [id number] HVGC to 100p.v. with 4 pads to the right ankle and gastroc muscle belly with CP following EX. Patient Position: Supine - Heat/Cryotherapy Treatment: Cryotherapy ([id number] with Estim ) Interventions - Exercise/Activities/Manual Therapy Exercises/Activities: Right ankle AROM of DF, PF, inversion, eversion, and circles cw and ccw. Green theraband DF, PF, Inversion, and Eversion, 3s/10reps. Pillow squeezes for ankle inversion and hip adduction, 2s/10reps each. Passive stretching of the hamstrings, gastroc, soleus, and plantar fascia. Began piriformis stretching on the right. Manually resisted isometric DF, PF, inversion, and eversion. Standing toe-ups and mini-squats. Modified forward lung , heel strikes, and toe-off with and without green (firm) therapy foam. Total minutes of Exercise: 25mins Manual Therapy: NA HOME EXERCISE PROGRAM: pt given written HEP with ankle alphabet, tband ex: DF/PF , Inversion, rolling object on plantar surface of foot to stretch plantar fascia , as well as AP and instructed pt to do AP while sitting at her desk and to elevate LE. Also gave pt instructions to ice foot after work/exercise and forward and side lunges. Standing toe-ups and mini-squats. - Charges Total Direct Minutes: 25mins Total Treatment Time: 50mins Procedures billed for this date of service:: EX2, CP, Estim unattended Assessment: Patient progressing with gait pattern and should benefit from 4 day weekend to reduce time on her feet and reduce right foot and ankle swelling. Patient Education: Home Exercise Program Patient demonstrates compliance with HEP?: Yes Short Term Goals Goal #1: R ankle ROM DF to 95, PF to 50 AROM Goal to be met by: 09/24/17 Progress towards Goal:: Met Goal #2: Increase R ankle Strength DF/PF 4-/5, Inversion/eversion 4-/5 Goal to be met by: 09/24/17 Progress towards Goal:: Met Goal #3: pt amb in dept with improved heel strike/toe off gait pattern w/o ER RLE Goal to be met by: 09/24/17 Progress towards Goal:: Met Goal #4: Patient to ambulate short distances w/o CAM boot, w/ minimal R foot pain. Goal to be met by: 02/14/17 Progress towards Goal:: Met Music Promoter Goals Goal #1: pt with improved strength R ankle 4to 4+/5 and independent with HEP Goal to be met by: 10/08/17 Progress towards goal: Progressing Goal #2: pt with decreased edema after working in R ankle, with ROM equal to [place] Goal to be met by: 10/08/17 Progress towards goal: Regressing Goal #3: pt improved LE functional scale to 60/80 Goal to be met by: 10/08/17 Goal #4: Pt to amb functional distances without gait deviation. Goal to be met by: 10/08/17 Progress towards goal: Not Met Plan PLAN OF CARE EXPIRES ON:: 10/08/17 ORDER # VISITS AND/OR THROUGH DATE: 10/08/17 PLAN: Continue ROM and strengthening of the right LE to improve ambulation and reduce swelling.
--- NOTE | 2017-09-30 10:40 | RS.OPPTDN ---
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 States swelling of the right foot and ankle continue to be a problem. Reports she was able to go up and down a step ladder with only occasional twinge of discomfort. *Precautions: n/a Pain Assessment - Pain Description Pain Location: Right foot and ankle Current Pain Intensity: 0/10 Worst Pain Intensity: 1/10 Other Comments regarding Pain:: Reports only an occasional twinge of discomfort with activity. - Treatment Modality: Electrical Stim Unattended Parameters/Method Applied: [id number] HVGC to 120-130p.v. with 4 large pads, cross current, to the right ankle with CP following exercise. - Heat/Cryotherapy Treatment: Cryotherapy ([id number] with Estim ) Interventions - Exercise/Activities/Manual Therapy Exercises/Activities: Right ankle AROM of DF, PF, inversion, eversion, and circles cw and ccw. Increased to blue theraband DF and PF. Red theraband for ankle inversion, 4s/10reps. Ball squeezes for ankle inversion and hip adduction , 2s/10reps each. Passive stretching of the hamstrings, gastroc, soleus, and plantar fascia. Manually resisted isometric DF, PF, inversion, and eversion. Standing toe-ups and mini-squats. Ball squeeze in standing with focus on IR of the bilateral hips. Worked on walking to increase heel strikes and toe-off. Modified heel toe walking and "pigeon toe" walking to encourage IR to neutral. Modified exaggerated toe-off or "tippy-toe" walking. Total minutes of Exercise: 20mins Manual Therapy: NA HOME EXERCISE PROGRAM: pt given written HEP with ankle alphabet, tband ex: DF/PF , Inversion, rolling object on plantar surface of foot to stretch plantar fascia , as well as AP and instructed pt to do AP while sitting at her desk and to elevate LE. Also gave pt instructions to ice foot after work/exercise and forward and side lunges. Standing toe-ups and mini-squats. - Objective Findings Observations,measurements,etc.: Demos only slight ER of hip and eversion of right foot with active correction of gait pattern. - Charges Total Direct Minutes: 20mins Total Treatment Time: 40mins Procedures billed for this date of service:: EX, CP, Estim unattended Assessment: Patient continues to have problems with swwelling in the right foot/ ankle when she is up on her feet for any length of time. Patients gait pattern is improving. Patient demonstrates compliance with HEP?: Yes Short Term Goals Goal #1: R ankle ROM DF to 95, PF to 50 AROM Goal to be met by: 09/24/17 Progress towards Goal:: Met Goal #2: Increase R ankle Strength DF/PF 4-/5, Inversion/eversion 4-/5 Goal to be met by: 09/24/17 Progress towards Goal:: Met Goal #3: pt amb in dept with improved heel strike/toe off gait pattern w/o ER RLE Goal to be met by: 09/24/17 Progress towards Goal:: Met Goal #4: Patient to ambulate short distances w/o CAM boot, w/ minimal R foot pain. Goal to be met by: 02/14/17 Progress towards Goal:: Met Career Services Officer Goals Goal #1: pt with improved strength R ankle 4to 4+/5 and independent with HEP Goal to be met by: 10/08/17 Progress towards goal: Progressing Goal #2: pt with decreased edema after working in R ankle, with ROM equal to [place] Goal to be met by: 10/08/17 Progress towards goal: Regressing Goal #3: pt improved LE functional scale to 60/80 Goal to be met by: 10/08/17 Goal #4: Pt to amb functional distances without gait deviation. Goal to be met by: 10/08/17 Progress towards goal: Not Met Plan PLAN OF CARE EXPIRES ON:: 10/08/17 ORDER # VISITS AND/OR THROUGH DATE: 10/08/17 PLAN: Continue modlities and exercise of the right LE to reduce swelling and improve functional gait pattern.
--- NOTE | 2017-10-03 09:10 | RS.OPPTDN ---
Subjective Date of Note: 10/02/17 Visit #: 7 Date of Evaluation: 09/10/17 Payer Source: Insurance Treatment Diagnosis: Right foot/ankle pain Current Subjective/complaints:: Patient reports she feels she has progressed well. Reports little to no discomfort or increased swelling this morning at work. States she feels she needs continued work on right LE strengthening to correct ER of hip and foot with ambulation. *Precautions: n/a Pain Assessment - Pain Description Current Pain Intensity: 0/10 Worst Pain Intensity: mild discomfort with push-off right LE in stride phase. Interventions - Exercise/Activities/Manual Therapy Exercises/Activities: Right ankle AROM of DF, PF, inversion, eversion, and circles cw and ccw. Blue theraband DF, PF, and inversion. Ball squeezes for ankle inversion and hip adduction, 2s/10reps each. Passive stretching of the hamstrings, gastroc, soleus, and plantar fascia. Manually resisted isometric DF , PF, inversion, and eversion. Standing toe-ups and mini-squats. Ball squeeze in standing with focus on IR of the bilateral hips. Worked on walking to increase heel strikes and toe-off. Modified exaggerated toe-off or "tippy-toe" walking. Unilateral standing on the right LE on green therapy foam. Total minutes of Exercise: 25mins Manual Therapy: NA HOME EXERCISE PROGRAM: pt given written HEP with ankle alphabet, tband ex: DF/PF , Inversion, rolling object on plantar surface of foot to stretch plantar fascia , as well as AP and instructed pt to do AP while sitting at her desk and to elevate LE. Also gave pt instructions to ice foot after work/exercise and forward and side lunges. Standing toe-ups and mini-squats. - Objective Findings Observations,measurements,etc.: Demos 4+/5 MMT, ROM WFL, and gait with only mild gait deviation. - Charges Timed Code Treatment Minutes: 25mins Total Treatment Time: 25mins Procedures billed for this date of service:: EX2 Assessment: Patient has progressed well with ROM and with reduction in pain and swelling. Patient Education: Home Exercise Program Patient demonstrates compliance with HEP?: Yes Short Term Goals Goal #1: R ankle ROM DF to 95, PF to 50 AROM Goal to be met by: 09/24/17 Progress towards Goal:: Met Goal #2: Increase R ankle Strength DF/PF 4-/5, Inversion/eversion 4-/5 Goal to be met by: 09/24/17 Progress towards Goal:: Met Goal #3: pt amb in dept with improved heel strike/toe off gait pattern w/o ER RLE Goal to be met by: 09/24/17 Progress towards Goal:: Met Goal #4: Patient to ambulate short distances w/o CAM boot, w/ minimal R foot pain. Goal to be met by: 02/14/17 Progress towards Goal:: Met Guitar Player Goals Goal #1: pt with improved strength R ankle 4to 4+/5 and independent with HEP Goal to be met by: 10/08/17 Progress towards goal: Met Goal #2: pt with decreased edema after working in R ankle, with ROM equal to [place] Goal to be met by: 10/08/17 Progress towards goal: Progressing Goal #3: pt improved LE functional scale to 60/80 Goal to be met by: 10/08/17 Progress towards goal: Met Goal #4: Pt to amb functional distances without gait deviation. Goal to be met by: 10/08/17 Progress towards goal: Progressing Plan PLAN OF CARE EXPIRES ON:: 10/08/17 ORDER # VISITS AND/OR THROUGH DATE: 10/08/17 PLAN: Continue with strengthening exercise and gait corrective activities.
== END 2017-10-03 ==
PROVIDERS: ATTEND Podiatrist
DX: Z47.89 Encounter for other orthopedic aftercare (principal)

== ENCOUNTER 2017-10-07 08:15 | Outpatient (RCR) ==
--- NOTE | 2017-10-04 10:39 | RS.OPPTDN ---
Subjective Date of Note: 10/04/17 Visit #: 8 Date of Evaluation: 09/10/17 Payer Source: Insurance Treatment Diagnosis: Right foot/ankle pain Current Subjective/complaints:: Patient reports mild swelling this morning as she has been on her feet approx 3 hours at work. Reports swelling is much better overall, but she realizes she needs to work on correction of gait deviation. *Precautions: n/a Pain Assessment - Pain Description Current Pain Intensity: 0/10 Other Comments regarding Pain:: Mild at achilles with push-off activities with weight-bearing. Interventions - Exercise/Activities/Manual Therapy Exercises/Activities: Blue theraband DF, PF, and inversion. Ball squeezes for ankle inversion and hip adduction, 2s/10reps each. Passive stretching of the hamstrings, gastroc, soleus, and plantar fascia. Manually resisted isometric DF , PF, inversion, and eversion. Right SAQ 4# and alt hip flexion 4# each ankle, 2s/10reps each. Standing toe-ups and mini-squats. Worked on walking to increase heel strikes and toe-off. Unilateral standing on the right LE on green therapy foam, weight shifting, toe-ups. Also with right LE on green foam, toe-offs and heel strikes. Leg press 45# and ankle df 45#, 20reps each. Total minutes of Exercise: 34mins Manual Therapy: NA HOME EXERCISE PROGRAM: pt given written HEP with ankle alphabet, tband ex: DF/PF , Inversion, rolling object on plantar surface of foot to stretch plantar fascia , as well as AP and instructed pt to do AP while sitting at her desk and to elevate LE. Also gave pt instructions to ice foot after work/exercise and forward and side lunges. Standing toe-ups and mini-squats. - Charges Timed Code Treatment Minutes: 34mins Total Treatment Time: 35mins Procedures billed for this date of service:: EX2 Assessment: Patient progressing strength of the right foot and ankle. Working on hip stretch and gait training to correct deviation. Patient Education: Home Exercise Program Patient demonstrates compliance with HEP?: Yes Short Term Goals Goal #1: R ankle ROM DF to 95, PF to 50 AROM Goal to be met by: 09/24/17 Progress towards Goal:: Met Goal #2: Increase R ankle Strength DF/PF 4-/5, Inversion/eversion 4-/5 Goal to be met by: 09/24/17 Progress towards Goal:: Met Goal #3: pt amb in dept with improved heel strike/toe off gait pattern w/o ER RLE Goal to be met by: 09/24/17 Progress towards Goal:: Met Goal #4: Patient to ambulate short distances w/o CAM boot, w/ minimal R foot pain. Goal to be met by: 02/14/17 Progress towards Goal:: Met Program Support Specialist Goals Goal #1: pt with improved strength R ankle 4to 4+/5 and independent with HEP Goal to be met by: 10/08/17 Progress towards goal: Met Goal #2: pt with decreased edema after working in R ankle, with ROM equal to [place] Goal to be met by: 10/08/17 Progress towards goal: Progressing Goal #3: pt improved LE functional scale to 60/80 Goal to be met by: 10/08/17 Progress towards goal: Met Goal #4: Pt to amb functional distances without gait deviation. Goal to be met by: 10/08/17 Progress towards goal: Progressing Plan PLAN OF CARE EXPIRES ON:: 10/08/17 ORDER # VISITS AND/OR THROUGH DATE: 10/08/17 PLAN: Continue progressive strengthening to correct gait pattern deviation.
--- NOTE | 2017-10-07 15:08 | RS.OPPTDN ---
Subjective Date of Note: 10/07/17 Visit #: 9 Date of Evaluation: 09/10/17 Payer Source: Insurance Treatment Diagnosis: Right foot/ankle pain Current Subjective/complaints:: Patient reports she is pleased with her progress. She reports a significant decrease in swelling and only occasional mild discomfort with being on her feet at work. States she will continue HEP as instructed. *Precautions: n/a Pain Assessment - Pain Description Current Pain Intensity: 0/10 Interventions - Exercise/Activities/Manual Therapy Exercises/Activities: Blue theraband DF, PF, and inversion. Ball squeezes for ankle inversion and hip adduction, 2s/10reps each. Passive stretching of the hamstrings, gastroc, soleus, and plantar fascia. Right SAQ 4# and alt hip flexion 4# each ankle, 2s/10reps each. Standing toe-ups and mini-squats. Practiced heel strikes and toe-off with walking. Unilateral standing on the right LE on green therapy foam, weight shifting, toe-ups. Also with right LE on green foam, toe-offs and heel strikes. Leg press 45# and ankle df 45#, 20reps each. Stationary bike 3mins, no discomfort. Total minutes of Exercise: 30mins Manual Therapy: NA HOME EXERCISE PROGRAM: pt given written HEP with ankle alphabet, tband ex: DF/PF , Inversion, rolling object on plantar surface of foot to stretch plantar fascia , as well as AP and instructed pt to do AP while sitting at her desk and to elevate LE. Also gave pt instructions to ice foot after work/exercise and forward and side lunges. Standing toe-ups and mini-squats. - Objective Findings Observations,measurements,etc.: Patient demos ROM WNL in the right ankle. MMT at 5/5 with df and pf, and 4+/5 with inversion and eversion. She demos mild eversion of the right foot but hip alignment appears to be corrected. - Charges Timed Code Treatment Minutes: 30mins Total Treatment Time: 33mins Procedures billed for this date of service:: EX2 Assessment: Patient has progressed well and benefitted from treatment. She met 7 of 8 treatment goals. She is able to perform most activities at work and be up on her feet for several hours. She will continue HEP to further progress gait. Patient Education: Home Exercise Program, Home Safety, Activity Modification Patient demonstrates compliance with HEP?: Yes Short Term Goals Goal #1: R ankle ROM DF to 95, PF to 50 AROM Goal to be met by: 09/24/17 Progress towards Goal:: Met Goal #2: Increase R ankle Strength DF/PF 4-/5, Inversion/eversion 4-/5 Goal to be met by: 09/24/17 Progress towards Goal:: Met Goal #3: pt amb in dept with improved heel strike/toe off gait pattern w/o ER RLE Goal to be met by: 09/24/17 Progress towards Goal:: Met Goal #4: Patient to ambulate short distances w/o CAM boot, w/ minimal R foot pain. Goal to be met by: 02/14/17 Progress towards Goal:: Met Box Toe Stitcher Goals Goal #1: pt with improved strength R ankle 4to 4+/5 and independent with HEP Goal to be met by: 10/08/17 Progress towards goal: Met Goal #2: pt with decreased edema after working in R ankle, with ROM equal to [place] Goal to be met by: 10/08/17 Progress towards goal: Met Goal #3: pt improved LE functional scale to 60/80 Goal to be met by: 10/08/17 Progress towards goal: Met Goal #4: Pt to amb functional distances without gait deviation. Goal to be met by: 10/08/17 Progress towards goal: Progressing Plan PLAN OF CARE EXPIRES ON:: 10/07/17 ORDER # VISITS AND/OR THROUGH DATE: 10/08/17 PLAN: Discharge with HEP.
--- NOTE | 2017-10-07 15:12 | RS.QUICKDC ---
Discharge from PT Date of Discharge: 10/07/17 Number of Visits: 9 Reason for Discharge: Patient progressed well and benefitted from treatment. She met 7 of 8 treatment goals and was independent with HEP. She was able to perform work duties including standing long hours. Discharge with HEP.
== END 2017-11-03 ==
PROVIDERS: ATTEND Podiatrist
DX: Z47.89 Encounter for other orthopedic aftercare (principal)

== ENCOUNTER 2017-12-18 09:24 | Outpatient (CLI) | payer OTHER | END 2017-12-18 09:25 | disposition home or self-care (01) | LOC: LAB 09:24 | PROVIDERS: ATTEND Internal Medicine | DX: E78.5 Hyperlipidemia, unspecified (principal); K21.9 Gastro-esophageal reflux disease without esophagitis; E66.9 Obesity, unspecified; R94.5 Abnormal results of liver function studies | CPT/HCPCS: 36415; 80053; 80061; 80074; 83036; 84443; 85025 ==

== ENCOUNTER 2017-12-23 07:38 | Outpatient (CLI) ==
--- NOTE | 2017-12-23 08:17 | CT ---
EXAM: CT of the abdomen pelvis without contrast History: Elevated liver enzymes. Technique: Multiplanar CT images through the abdomen pelvis were obtained without the administration of IV contrast Findings: Lung bases are clear. No acute osseous abnormalities. The severe degenerative disc disea se at L4-L5. The liver is enlarged measuring 20 cm in length. The liver is fatty. Status post cholecystectomy. No focal liver lesions. Spleen is unremarkable. No peripancreatic inflammation. Adrenal glands are unremarkable. No renal stones and no hydronephrosis. The appendix is normal. No dilated loops of bowel. No free air and no ascites. No bladder wall thickening. Adnexal structures appear appropria te for patient's age. Scattered colonic stool. No pathologically enlarged lymph nodes. Impression: 1. No acute intra-abdominal or pelvic process. 2. Enlarged fatty liver. 3. Severe degenerative disc disease at L4-L5
== END 2017-12-23 07:39 | disposition home or self-care (01) ==
LOC: RAD 07:38
PROVIDERS: ATTEND Internal Medicine
DX: R74.8 Abnormal levels of other serum enzymes (principal)

== ENCOUNTER 2017-12-31 15:06 | Outpatient (CLI) | payer OTHER | END 2017-12-31 15:07 | disposition home or self-care (01) | LOC: LAB 15:06 | PROVIDERS: ATTEND Internal Medicine | DX: R94.5 Abnormal results of liver function studies (principal) | CPT/HCPCS: 36415; 80053; 80074 ==

== ENCOUNTER 2018-05-01 15:14 | Outpatient (CLI) | END 2018-05-01 15:15 | disposition home or self-care (01) | LOC: LAB 15:14 | PROVIDERS: ATTEND Internal Medicine | DX: E78.5 Hyperlipidemia, unspecified (principal); R94.5 Abnormal results of liver function studies | CPT/HCPCS: 36415; 80053; 80061; 83036; 84443; 85025 ==

== ENCOUNTER 2018-08-05 10:36 | Outpatient (CLI) | END 2018-08-05 10:37 | disposition home or self-care (01) | LOC: FCC-LAB 10:36 | PROVIDERS: ATTEND Family Medicine | DX: R22.0 Localized swelling, mass and lump, head (principal); K13.0 Diseases of lips | CPT/HCPCS: 87252 ==

== ENCOUNTER 2018-11-20 12:55 | Emergency (ER) ==
[2018-11-20 13:00] VITALS: BP 130/81; TEMP 98.4; BMI 36.1
--- NOTE | 2018-11-20 13:44 | ED.PDOC ---
General ED Provider: Dr. XANDER COSTA Chief Complaint: Fall Stated Complaint: PATIENT STATES THAT SHE WAS WALKING AND HER FOOT GOT CAUGHT ON A TRASH CAN. PATIENT STATES THAT SHE FELL ONTO TILE AND STRUCK THE OUTER ASPECT OF HER RIGHT KNEE WELL THE palmar lateral aspect of her Rt Hand/ Wrist. Time Seen by Physician: 13:20 Mode of Arrival: Walk-In Information Source: Patient Exam Limitations: No limitations Primary Care Provider: ERNESTO SERVIN Nursing and Triage Documentation Reviewed and Agree: Yes Does patient meet sepsis criteria?: No System Inflammatory Response Syndrome: Not Applicable Sepsis Protocol: For patient's 13 years and over: Temp is 96.8 and below OR 101 and greater Pulse >90 BPM Resp >20/minute Acutely Altered Mental Status Are patient's symptoms suggestive of a new infection, such as: -Pneumonia -Skin, Soft Tissue -Endocarditis -UTI -Bone, Joint Infection -Implantable Device -Acute Abdominal Infection -Wound Infection -Meningitis -Blood Stream Catheter Infection -Unknown Review of Systems - Review Of Systems Constitutional: Reports: No symptoms Eyes: Reports: No symptoms Ears, Nose, Mouth, Throat: Reports: No symptoms Respiratory: Reports: No symptoms Cardiac: Reports: No symptoms GI: Reports: No symptoms : Reports: No symptoms Musculoskeletal: Reports: No symptoms, Joint pain Skin: Reports: No symptoms Neurological: Reports: No symptoms Endocrine: Reports: No symptoms Hematologic/Lymphatic: Reports: No symptoms All Other Systems: Reviewed and Negative Past Medical History - Past Medical History Previously Healthy: Yes Endocrine: Reports: None Cardiovascular: Reports: None Respiratory: Reports: None Hematological: Reports: None Gastrointestinal: Reports: None Genitourinary: Reports: None Neuro/Psych: Reports: None Musculoskeletal: Reports: None Cancer: Reports: None Last Menstrual Period: POST MENOPAUSAL - Surgical History General Surgical History: Reports: Cholecystectomy, Orthopedic - Family History Family History: Reports: Unknown - Social History Smoking Status: Never smoker Hx Substance Use: No Alcohol Screening: Occasionally - Immunizations Tetanus Shot up to Date: Yes Physical Exam - Physical Exam Appearance: Well-appearing, No pain distress, Well-nourished Eyes: GABRIELA, EOMI, Conjunctiva clear ENT: Ears normal, Nose normal, Oropharynx normal Respiratory: Airway patent, Breath sounds clear, Breath sounds equal, Respirations nonlabored Cardiovascular: RRR, Pulses normal, No rub, No murmur GI/: Soft, Nontender, No masses, Bowel sounds normal, No Organomegaly Musculoskeletal: Normal strength, ROM intact, No edema, No calf tenderness Skin: Warm, Dry, Normal color Neurological: Sensation intact, Motor intact, Reflexes intact, Cranial nerves intact, Alert, Oriented Psychiatric: Affect appropriate, Mood appropriate Critical Care Note - Critical Care Note Total Time (mins): 0 Course - Course Orders, Labs, Meds: Orders Category Date Time Status Knee immobilizer [ED SPLINT APPLICATION] .ONCE EMERGENCY 11/20/18 16:35 Active Wrist splint [ED SPLINT APPLICATION] .ONCE EMERGENCY 11/20/18 16:36 Active Ibuprofen [Motrin] MEDS 11/20/18 15:21 Discontinued 600 mg PO ONCE STA CT WRIST RIGHT W/O CONTRAST Stat RADS 11/20/18 15:19 Completed HAND, RIGHT 3 VIEWS Stat RADS 11/20/18 13:43 Completed KNEE, RIGHT 4 VIEWS Stat RADS 11/20/18 13:42 Completed WRIST, RIGHT 3 VIEWS Stat RADS 11/20/18 14:38 Completed Medications Discontinued Medications Generic Name Dose Route Start Last Admin Trade Name Freq PRN Reason Stop Dose Admin Ibuprofen 600 mg 11/20/18 15:21 11/20/18 15:34 Motrin PO 11/20/18 15:22 600 mg ONCE STA Administration Vital Signs: Temp Pulse Resp BP Pulse Ox 11/20/18 12:55 98.4 F 87 18 130/81 96 Departure - Departure Time of Disposition: 16:30 Disposition: HOME SELF-CARE Discharge Problem: Contusion of knee, right, Strain of right wrist Instructions: Fall Prevention (ED) Condition: Good Pt referred to PMD for follow-up: Yes IPMP verified?: No Additional Instructions: Ice applied to area of injury for 20 min twice daily Ibuprofen 600 mg 4 times daily Wrist imobilizer and knee brace Minimized weight bearing Keep Rt Knee elevatee Remain at rest with rt lower extremity elevated F/u Dr Poe for additional eval and work release Allergies/Adverse Reactions: Allergies meperidine HCl [From Demerol] Allergy (Severe, Unverified 11/20/18 13:00) N/V Home Medications: Ambulatory Orders Pantoprazole Sodium [Protonix] 40 mg PO DAILY 07/28/15 Disposition Discussed With: Patient Musculoskeletal Complaint Exam - Hand/Wrist Complaint/Exam Location of Pain: Reports: Right, Wrist Mechanism of Injury: Reports: Trauma Onset/Duration: 1 hr Symptoms Are: Still present Onset of Pain: Reports: Immediate Initial Severity: Moderate Current Severity: Moderate Location: Reports: Discrete Character: Reports: Sharp, Aching Alleviating: Reports: Rest Aggravating: Reports: Movement Associated Signs and Symptoms: Denies: Swelling, Redness, Bruising, Fever, Weakness, Numbness, Tingling Related History: Denies: Similar episode Dominant Hand: Right Related Surgical History: Reports: None Hand/Wrist Findings: Present: Swelling (Tenderness mid wrist ) Differential Diagnoses: Strain, Other (Fracture) - Knee Pain Complaint/Exam Mechanism of Injury: Reports: Trauma (Patient fell landing on her rt knee) Onset/Duration: 1 hr Symptoms Are: Still present Onset of Pain: Reports: Immediate, Post accident Initial Severity: Moderate Current Severity: Moderate Location: Reports: Discrete Character: Reports: Sharp, Dull, Aching, Throbbing, Spasmodic, Stiffness Alleviating: Reports: None Aggravating: Reports: Movement, Weight bearing Associated Signs and Symptoms: Reports: Swelling Able to Bear Weight: Yes (with discomfort) Related History: Denies: Similar episode Septic Arthritis Risk Factors: Reports: None Gout Risk Factors: Reports: None Related Surgical History: Denies: Right Knee, Left Knee, Other Orthopedic Surgery Knee Findings: Present: Swelling, Erythema, Warmth. Absent: Abnormal contour, Rotation, Ligamentous instability, Blisters, Foreign body Tenderness: Present: Tibial Tuberosity Lorin Test Positive: No Viri Test Positive: No Limited Range of Motion: Present: Passive Differential Diagnoses: Contusion, Closed Fracture, Strain
--- NOTE | 2018-11-20 14:20 | DI ---
EXAM: RIGHT HAND, 3 VIEWS HISTORY: Injury, pain FINDINGS: Joints are intact. The metacarpal bones and phalanges are intact. Suboptimal evaluation of the wrist bones. This exam cannot completely exclude a fracture of the scaphoid. Correlate clini azael. Consider wrist series if indicated. IMPRESSION: 1. Questionable lucency of the scaphoid bone. If there are symptoms in this region, a wrist series is recommended with a scaphoid view.
--- NOTE | 2018-11-20 14:27 | DI ---
EXAM: Four views of the right knee. History: Right knee trauma. Comparison: Right knee radiograph 06/12/2016 Findings: No acute fracture or dislocation. No abnormal calcifications or radiopaque foreign bodies . Joint spaces are preserved. There is anterior subcutaneous edema. Impression: No acute osseous abnormality. Anterior subcutaneous edema
--- NOTE | 2018-11-20 15:04 | DI ---
EXAM: Right wrist three views HISTORY: Wrist injury, possible scaphoid fracture. FINDINGS / IMPRESSION: The there is what probably represents a relief shadow from the superimposed d istal radius over the waist of the scaphoid bone on one of the three views. The radiographs reveal n o convincing evidence of scaphoid fracture although if there are severe regional symptoms, CT correla tion can be made.
[2018-11-20] MEDS ORDERED: MOTRIN PO STA (15:21)
--- NOTE | 2018-11-20 16:08 | CT ---
EXAM: CT of the right wrist without contrast History: Right wrist pain and trauma. Comparison: Right wrist radiograph 11/20/2018 Technique: Multiplanar CT images through the right wrist were obtained without the administration of IV contrast Findings: No acute fracture or dislocation. Mild to moderate polyarticular joint space narrowing. There is chondrocalcinosis within the triangular fibrocartilage. Subchondral cyst within the scaphoi d bone. Impression: 1. No acute osseous abnormality. 2. 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 3. Chondrocalcinosis within the triangular fibrocartilage.
== END 2018-11-20 16:50 | disposition home or self-care (01) ==
LOC: ED 12:55
DX: S80.01XA Contusion of right knee, initial encounter (principal); S66.911A Strain of unspecified muscle, fascia and tendon at wrist and hand level, right hand, initial encounter; W01.0XXA Fall on same level from slipping, tripping and stumbling without subsequent striking against object, initial encounter; Y92.239 Unspecified place in hospital as the place of occurrence of the external cause; Y99.0 Civilian activity done for income or pay
CPT/HCPCS: 99283